=== PATIENT | male | born 1985 | race Caucasian/White ===

== ENCOUNTER 2018-08-24 13:55 | Emergency (ER) | payer OTHER, SELFPAY ==
[2018-08-24 13:59] VITALS: BP 113/73; PULSE 64; RESP 16; TEMP 36.3; O2SAT 99; BMI 25.7
--- NOTE | 2018-08-24 15:50 | PC.NURSE ---
patient thinks he was exposued to poison [place] on monday. Noted redness and blisters to small area on monday. Increase in area of redness, two large patches of blisters noted. Concerns area is warm to touch and appears to be growing. Had a similar experience in the past that was treated with some sort of steroid. Patient has no rash or blisters any where else that he has noted. Denies SOB.
--- NOTE | 2018-08-24 19:25 | ED_ITS ---
HPI - Skin/Abscess/Foreign Bdy <MARIANNE DevineBC - Last Filed: 08/24/18 19:25> General Chief complaint: Skin/Abscess/Foreign Body Stated complaint: allergic reaction Time Seen by Provider: 08/24/18 16:30 Source: patient Mode of arrival: ambulatory Limitations: no limitations History of Present Illness HPI narrative: The patient is a 33-year-old male of CML who presents with a chief complaint of a rash on his left thigh. To poison [place] on Monday in [facility]. He had redness and blisters to a small area, is subsequently increasing areas of redness and blisters. He states that the blisters and redness are diffuse. He states this has happened before and he was treated with a steroid. He denies any rash anywhere else other than his upper thigh. Denies any shortness of breath, fevers, chest pain nausea vomiting or diarrhea. He is concerned about spreading rest shows he is headed to [place] for backpacking trip. He has not applied anything to the rash. He does state that he has taken some Benadryl. Patient states it itches. Related Data Home Medications Medication Instructions Recorded Confirmed sildenafil (antihypertensive) 20 mg PO PRN PRN MDD 20 mg 08/24/18 Previous Rx's Medication Instructions Recorded prednisone 50 mg PO DAILY #5 tab 08/24/18 Allergies Allergy/AdvReac Type Severity Reaction Status Date / Time No Known Drug Allergies Allergy Verified 08/24/18 14:02 Review of Systems <JANIE Devine - Last Filed: 08/24/18 19:25> Review of Systems GENERAL: Denies chills, fatigue, malaise, fever, sweats. HEENT: Denies sinus pain, ear pain, sore throat, difficulty swallowing, dizziness. RESPIRATORY: Denies dyspnea, cough, wheezing, hemoptysis, sputum. CARDIOVASCULAR: Denies chest pain, palpitations, orthopnea, edema, GASTROINTESTINAL: Denies nausea, vomiting, abdominal pain, diarrhea, constipation, melena. : Denies dysuria, frequency, incontinence, hematuria, urinary retention. MUSCULOSKELETAL: denies weakness, joint pain, or bony pain SKIN: See HPI NEUROLOGIC: Denies weakness, headache, numbness, change in speech, confusion, seizures, incoordination. PSYCHIATRIC: No concerning psychosocial issues. 12 point review of systems is negative except for those stated above PFSH <JANIE Devine - Last Filed: 08/24/18 19:25> Medical History (Updated 08/24/18 @ 19:21 by JANIE Devine) CML (chronic myelocytic leukemia) (Acute) Social History Smoking Status: Never smoker Social History Smoking Status: Never smoker Exam <JANIE Devine - Last Filed: 08/24/18 19:25> Narrative Exam Narrative: GENERAL: This is a well-nourished, well-developed patient, no acute distress HEAD: Atraumatic. Normocephalic. No temporal or scalp tenderness. EYES: Pupils equal round and reactive. Extraocular motions intact. No scleral icterus. No injection or drainage. ENT: Nose without bleeding, purulent drainage or septal hematoma. Throat without erythema, tonsillar hypertrophy or exudate. Uvula midline. Airway patent. NECK: Trachea midline. No JVD or lymphadenopathy. Supple, nontender, no meningeal signs. CARDIOVASCULAR: Regular rate and rhythm without murmurs, gallops, or rubs. RESPIRATORY: Clear to auscultation. Breath sounds equal bilaterally. No wheezes, rales, or rhonchi. GASTROINTESTINAL: Abdomen soft, non-tender, nondistended. No hepato- splenomegaly, or palpable masses. No guarding. EXTREMITIES: No clubbing, cyanosis, or edema. No joint tenderness, effusion, or edema noted. BACK: Nontender without deformity or crepitance. No flank tenderness. NEURO: AOx3. SKIN: Vesicles and bullae noted on left thigh, with main vesicles and lesions 6 x 4 cm and 3 x 4 cm. Surrounding erythema and crusting with smaller vesicles noted, all in all covering 10 x 20 cm of leg. Crusting noted. Initial Vital Signs Initial Vital Signs: Vital Signs Temperature 97.3 F L 08/24/18 13:59 Pulse Rate 64 08/24/18 13:59 Respiratory Rate 16 08/24/18 13:59 Blood Pressure 113/73 08/24/18 13:59 Pulse Oximetry 99 08/24/18 13:59 <Glenna Bourgeois DO - Last Filed: 08/25/18 06:15> Initial Vital Signs Initial Vital Signs: Vital Signs Temperature 97.3 F L 08/24/18 13:59 Pulse Rate 64 08/24/18 13:59 Respiratory Rate 16 08/24/18 13:59 Blood Pressure 113/73 08/24/18 13:59 Pulse Oximetry 99 08/24/18 13:59 Course <JANIE Devine - Last Filed: 08/24/18 19:25> Vital Signs - 8 hr 08/24/18 13:59 Temperature 97.3 F L Pulse Rate 64 Respiratory Rate 16 Blood Pressure 113/73 Pulse Oximetry 99 <Glenna Bourgeois DO - Last Filed: 08/25/18 06:15> Vital Signs - 8 hr 08/24/18 13:59 Temperature 97.3 F L Pulse Rate 64 Respiratory Rate 16 Blood Pressure 113/73 Pulse Oximetry 99 MDM - Skin/Abscess/Foreign Bdy <JANIE Devine - Last Filed: 08/24/18 19:25> MDM Narrative Medical decision making narrative: The patient is a 33-year-old male who presents with a chief complaint of concern of poison [place] rash. This correlates with his exam. Given the widespread nature, I initiated steroid treatment. He has no signs of systemic infection such as redness and fever. He also has vesicles throughout his rash. I discussed at length monitoring for fevers, inability keep down fluids, etc. Encouraged patient to follow up with primary care provider. Discussed return precautions of signs of systemic illness. Patient has no questions or concerns upon discharge. Discharge Plan Departure Patient Disposition: Home Clinical Impression: Contact dermatitis Qualifiers: Contact dermatitis type: allergic Contact dermatitis trigger: non-food plants Qualified Code(s): L23.7 - Allergic contact dermatitis due to plants, except food Discharge Date/Time: 08/24/18 17:04 Interventions: ED Discharge Assessment Last Done: 08/24/18 17:03 Instructions: Poisonous Plants: [place], [place], and [place]: Beware the Oils, Poison [place], Poison [place], Poison [place], DI for Poison [place] Allergy Activity Restrictions/Additional Instructions: I have given you a prescription for steroids for your rash. Please follow up with primary care provider. Please monitor for fevers, vomiting diarrhea and signs of systemic infection. Please follow up with any of these occur. Please come back to emergency department for any acute concerns. Prescriptions: New prednisone 50 mg tablet 50 mg PO DAILY Qty: 5 RF: 0 No Action sildenafil (antihypertensive) 20 mg tablet 20 mg PO PRN MDD 20 mg PRN (Reason: Erectile Dysfunction) RF: 0 <Glenna Bourgeois DO - Last Filed: 08/25/18 06:15> Cosign ED Attending Cosignature Attestation: I was immediately available in the department for consultation. This documentation has been reviewed and I agree with assessment and plan. Supervised by Glenna Bourgeois DO
== END 2018-08-24 17:04 | disposition home or self-care (01) ==
PROVIDERS: Emergency Provider Nurse Practitioner Family
DX: L23.7 Allergic contact dermatitis due to plants, except food (principal)
CPT/HCPCS: 99282; 99283